=== PATIENT | female | born 2000 | race Two or more races ===

== ENCOUNTER 2019-02-12 06:06 | Day surgery (SDC) | payer OTHER ==
[~2019-02-12] VITALS: Ht 180.3 cm; Wt 46.7 kg
== END 2019-02-12 16:54 | disposition home or self-care (01) ==
LOC: ER 06:06 → CIR.AMB 07:51
DX: O02.1 Missed abortion (principal); N75.0 Cyst of Bartholin's gland; Z3A.10 10 weeks gestation of pregnancy

== ENCOUNTER 2020-12-04 15:11 | Emergency (ER) | payer OTHER ==
[~2020-12-04] VITALS: Ht 162.6 cm; Wt 45.4 kg
== END 2020-12-04 19:37 | disposition home or self-care (01) ==
LOC: ER
DX: O26.892 Other specified pregnancy related conditions, second trimester (principal); E16.1 Other hypoglycemia; Z34.02 Encounter for supervision of normal first pregnancy, second trimester

== ENCOUNTER 2021-04-01 20:40 | Inpatient (IN) | payer OTHER ==
[~2021-04-01] VITALS: Ht 162.6 cm; Wt 51.3 kg
[2021-04-01] MEDS ORDERED: PRENATAL + DHA1 EAC1 (21:00)
[2021-04-01] MEDS ORDERED: IRON236 MG (21:00)
[2021-04-10] MEDS ORDERED: AMOX1TAB5 PO (08:16)
[2021-04-10] MEDS ORDERED: IRON325 MG PO (08:16)
== END 2021-04-10 09:26 | disposition home or self-care (01) | DRG 832 ==
LOC: OB/GYN 20:40 → LDR 20:40 → OB/GYN 04-02 10:50
PROVIDERS: ADMIT Specialist; ATTEND Specialist
PROC: 4A1HXFZ Monitoring of Products of Conception, Cardiac Rhythm, External Approach (ICD-10-PCS; 2021-04-01)
PROC: BY4FZZZ Ultrasonography of Third Trimester, Single Fetus (ICD-10-PCS; principal; 2021-04-03)
DX: O98.213 Gonorrhea complicating pregnancy, third trimester (principal); A54.1 Gonococcal infection of lower genitourinary tract with periurethral and accessory gland abscess; O99.113 Other diseases of the blood and blood-forming organs and certain disorders involving the immune mechanism complicating pregnancy, third trimester; D69.6 Thrombocytopenia, unspecified; D72.829 Elevated white blood cell count, unspecified; O99.013 Anemia complicating pregnancy, third trimester; D64.9 Anemia, unspecified; Z3A.33 33 weeks gestation of pregnancy
CPT/HCPCS: 240

== ENCOUNTER 2021-05-01 12:30 | Inpatient (IN) | payer OTHER ==
[~2021-05-01] VITALS: Ht 162.6 cm; Wt 55.3 kg
[~2021-05-01 12:30] MED LIST: AMOX1TAB5 PO; IRON236 MG; IRON325 MG PO; PRENATAL + DHA1 EAC1
== END 2021-05-12 15:10 | disposition home or self-care (01) | DRG 807 ==
LOC: OB/GYN 05-10 06:05 → LDR 05-10 06:05 → OB/GYN 05-10 17:51 → SURH 05-18 12:30
PROVIDERS: ADMIT Specialist; ATTEND Specialist
PROC: 10E0XZZ Delivery of Products of Conception, External Approach (ICD-10-PCS; principal; 2021-05-10)
PROC: 0W8NXZZ Division of Female Perineum, External Approach (ICD-10-PCS; 2021-05-10)
PROC: 10907ZC Drainage of Amniotic Fluid, Therapeutic from Products of Conception, Via Natural or Artificial Opening (ICD-10-PCS; 2021-05-10)
PROC: 3E033VJ Introduction of Other Hormone into Peripheral Vein, Percutaneous Approach (ICD-10-PCS; 2021-05-10)
PROC: 4A1HXFZ Monitoring of Products of Conception, Cardiac Rhythm, External Approach (ICD-10-PCS; 2021-05-10)
DX: O99.02 Anemia complicating childbirth (principal); D64.9 Anemia, unspecified; Z37.0 Single live birth; Z3A.38 38 weeks gestation of pregnancy